=== PATIENT | female | born 2005 | race Two or more races ===

== ENCOUNTER 2024-11-02 14:41 | Emergency (ER) | payer SELFPAY ==
[~2024-11-02] VITALS: Ht 170.2 cm; Wt 59.0 kg
--- NOTE | 2024-11-02 15:28 | ED.PDOC ---
ICING MAKER HPI Comments 19y F who presents to the ED for chief complaint of vaginal bleeding. Pt states she has been having vaginal bleeding since earlier this afternoon. Pt states he is currently 6 weeks , and states she passed a small clot in her blood. Pt otherwise denies nausea, vomiting, fever, chills, dysuria, hematuria or hematemesis. Pt otherwise denies any other symptoms at this time. Chief Complaint: Vaginal Bleed Time Seen by MD: 15:20 Reviewed Notes: Nurses Notes Allergies: Coded Allergies: NO KNOWN ALLERGIES (Unverified , 11/02/24) Home Meds Active Scripts Nitrofurantoin Monohydrate Mac (Macrobid) 100 Mg Cap, 100 MG PO BID for 5 Days, #10 CAP Prov:ADRIANA MACDONALD MD 11/02/24 Information Source: Patient Mode of Arrival: Ambulatory Brought in by: self Timing: Hours Prehospital treatment: None Severity: Moderate Vaginal Discharge: None Vaginal Lesions: None Bleeding Quality: Bright Red, Clotted Vaginal Mass: None Onset Of Mass/Bleeding: Spontaneous Sexual Activity: Last Consensual [place]: Unknown History of: Current Blood Type: Unknown Symptoms of Possible : None Post Assault: Done Nothing Associated Signs and Symptoms: Vaginal Bleeding Past Medical History PAST MEDICAL HISTORY: Denies Surgical History: Denies all surgeries PRINT MANAGER History: Denies all PRINT MANAGER Hx Family History Family History: Reviewed,noncontributory to illness Social History Smoker: Non-Smoker Alcohol: Denies ETOH Use Drugs: Denies Drug Use Lives In: Home Constitutional: denies: chills, diaphoresis, fatigue, fever, malaise, sweats, weakness, others EENTM: denies: blurred vision, double vision, ear bleeding, ear discharge, ear drainage, ear pain, ear ringing, eye pain, eye redness, hearing loss, mouth pain, mouth swelling, nasal discharge, nose bleeding, nose congestion, nose pain, photophobia, tearing, throat pain, throat swelling, voice changes, others Respiratory: denies: cough, hemoptysis, orthopnea, SOB at rest, shortness of breath, SOB with excertion, stridor, wheezing, others Cardiovascular: denies: chest pain, dizzy spells, diaphoresis, Dyspnea on exertion, edema, irregular heart beat, left arm pain, lightheadedness, palpitations, PND, syncope, others Gastrointestinal: denies: abdomen distended, abdominal pain, blood streaked bowels, constipated, diarrhea, dysphagia, difficulty swallowing, hematemesis, melena, nausea, poor appetite, poor fluid intake, rectal bleeding, rectal pain, vomiting, others Genitourinary: reports: abnormal vagina bleeding; denies: burning, dyspareunia, dysuria, flank pain, frequency, hematuria, incontinence, pain, , vagina discharge, urgency, others Neurological: denies: dizziness, fainting, headache, left sided numbness, left sided weakness, numbness, paresthesia, pre-existing deficit, right sided numbness, right sided weakness, seizure, speech problems, tingling, tremors, weakness, others Musculoskeletal: denies: back pain, gout, joint pain, joint swelling, muscle pain, muscle stiffness, neck pain, others Integumetry: denies: bruises, change in color, change in hair/nails, dryness, laceration, lesions, lumps, rash, wounds, others Allergic/Immunocompromised: denies: Difficulty Healing, Frequent Infections, Hives, Itching, others Hematologic/Lymphatic: denies: anemia, blood clots, easy bleeding, easy bruising, swollen glands, others Endocrine: denies: excessive hunger, excessive sweating, excessive thirst, excessive urination, flushing, intolerance to cold, intolerance to heat, unexplained weight gain, unexplained weight loss, others Psychiatric: denies: anxiety, bipolar disorder, depression, hopeless, panic disorder, schizophrenia, sleepless, suicidal, others All Other Systems: Reviewed and Negative Physical Exam General Appearance: No Apparent Distress HEENT: Normal ENT Inspection, Pharynx Normal, TMs Normal Neck: Full Range of Motion, Non-Tender, Normal, Normal Inspection Respiratory: Chest Non-Tender, Lungs Clear, No Accessory Muscle Use, No Respiratory Distress, Normal Breath Sounds Cardiovascular: No Edema, No JVD, No Murmur, No Gallop, Normal Peripheral Pulses, Regular Rate/Rhythm Breast Exam: Deferred Gastrointestinal: No Organomegaly, Non Tender, No Pulsatile Mass, Normal Bowel Sounds, Soft Genitalia: Deferred Pelvic: Deferred Rectal: Deferred Extremities: No calf tenderness, Normal capillary refill, Normal inspection, Normal range of motion, Non-tender, No pedal edema Musculoskeletal : Apperance: Normal Neurologic: Alert, stick welder II-XII nml as Tested, No Motor Deficits, Normal Affect, Normal Mood, No Sensory Deficits Cerebellar Function: Normal Reflexes: Normal Skin: Dry, Normal Color, Warm Lymphatic: No Adenopathy Was a procedure done? Was a procedure done?: No Differential Diagnosis (PRINT MANAGER) Vaginal Bleeding: - Complete, - Incomplete, - Inevitable, - Missed, - Threatened, Blood Loss Anemia, Cervicitis, Myomatous Uterus, UTI, Vaginitis X-Ray, Labs, Meds, VS Vital Signs Date Time Temp Pulse Resp B/P (MAP) Pulse Ox O2 Delivery O2 Flow Rate FiO2 11/02/24 14:45 98.1 82 18 115/79 (91) 99 Lab Test 11/02/24 14:59 Range/Units Urine Color Colorless Yellow Urine Clarity Clear Clear Urine pH 6.5 5.0-9.0 Urine Specific Isabel 1.009 1.001-1.035 Urine Protein Negative Negative Urine Ketones 2+ H Negative Urine Blood 3+ H Negative /uL Urine Nitrite 2+ H Negative Urine Bilirubin Negative Negative Urine Urobilinogen Normal Negative mg/dL Urine Leukocyte Esterase Trace Negative /uL Urine RBC 12 0 - 4 /hpf Urine Microscopic WBC 9 H 0-5 /HPF Urine Squamous Epithelial Cells Few <5 /hpf Urine Bacteria Few H None Seen /hpf Urine Glucose Normal Normal mg/dL Urine Test Positive Negative Urine test is positive for UTI The test is positive The ultrasound of the pelvis shows:IMPRESSION: 1. Single viable intrauterine with gestational age of 5 weeks 5 days based on crown-rump length measurement. At this time the patient was being diagnosed with a threatened and UTI in The patient was being discharged The patient will return to the emergency department's the condition worsens Images Reviewed?: Images reviewed and evaluated by me Time of 1ST Reevaluation: 15:50 Reevaluation 1ST: Unchanged Time of 2ND Reevaluation: 17:49 Reevaluation 2ND: Improved Patient Education/Counseling: Diagnosis, Treatment, Prognosis, Need For Follow Up Family Education/Counseling: No Family Present Additional Information - I reviewed the following notes from patient's past medical encounters: - The following tests were ordered, and results were reviewed by me: (Labs, X- Ray, EKG): urine , UA, OB ultrasound - Additional information was gathered from interviewing the following independent Historian: (Family, Other Providers, EMT): none, - I reviewed and agreed with the following test results read by other provider: (X-ray, CT, US): radiologist - I discussed treatments and results with medical personnel and: (consultants, family): none Departure 1 Departure Time of Disposition: 17:49 Impression: Primary Impression: Threatened Additional Impression: UTI in Qualified Codes: O23.40 - Unspecified infection of urinary tract in , unspecified trimester Disposition: HOME / SELF CARE / HOMELESS Condition: Fair e-Prescriptions Nitrofurantoin Monohydrate Mac (Macrobid) 100 Mg Cap 100 MG PO BID for 5 Days, #10 CAP Prov: ADRIANA MACDONALD MD 11/02/24 Discharged With: Self Critical Care Note Critical Care Time?: No Stability Stability form required: No Heart Score Heart Score: Heart Score Response (Comments) Value History N/A 0 EKG N/A 0 Age N/A 0 Risk Factors N/A 0 Troponin N/A 0 Total 0 I personally scribed for ADRIANA MACDONALD MD ([email or web address]) on 11/02/24 at 15:28. Electronically submitted by Prasanna Soto ([email or web address]). ADRIANA MACDONALD MD Nov 02, 2024 15:28
[2024-11-02 16:54] LABS: Urine Bacteria FEW /hpf (None Seen); Urine Blood 3+ /uL (Negative); Urine Clarity Clear (Clear); Urine Color Colorless (Yellow); Urine Protein, UAD Negative (Negative); Urine Specific Gravity 1.009 (1.001-1.035); Urine Squamous Epithelial Cell FEW /hpf (<5); Urine Urobilinogen Normal (Negative); Urine WBC 9 /HPF (0-5); Urine pH 6.5 (5.0-9.0)
--- NOTE | 2024-11-02 16:58 | DVH ---
OB ULTRASOUND CLINICAL HISTORY: vag bleeding TECHNIQUE: Transabdominal and endovaginal OB ultrasound. Comparison: None FINDINGS: The uterus measures 8.0 x 4.9 x 5.6 cm. There is a gestational sac within the uterus with a mean sac diameter of 1.35 cm. There is a small subchorionic hemorrhage adjacent to the gestational sac. Within the gestational sac a yolk sac and pole are identified. The crown-rump length measures 0.2 cm which corresponds to a gestational age of 5 weeks 5 days. heart activity is demonstrated with h eart tone of 98 BPM. The right ovary measures 3.4 x 1.9 x 2.4 cm. The left ovary measures 3.5 x 1.9 x 2.2 cm. Both ovaries appear within normal limits. There is no evidence of an adnexal mass. There is no free fluid within the cul-de-sac. IMPRESSION: 1. Single viable intrauterine with gestational age of 5 weeks 5 days based on crown-rump tanya th measurement. HS:Y
[2024-11-02] MEDS ORDERED: NITR-87 PO (17:46)
[2024-11-02 18:53] VITALS: BP 138/79; PULSE 89; RESP 20; TEMP 98.2; O2SAT 100
== END 2024-11-02 18:55 | disposition home or self-care (01) ==
LOC: ER 14:41
DX: O20.0 Threatened abortion (principal); Z3A.01 Less than 8 weeks gestation of pregnancy
CPT/HCPCS: 76801; 76817; 81001; 81025